=== PATIENT | male | born 1960 | race Caucasian/White ===

== ENCOUNTER → 2025-06-22 | Outpatient (CLI) | payer MEDICARE ==
[~2025-06-22] MED LIST: IOHEXOL-350 75 ML VIAL IV ONE
--- NOTE | 2025-06-22 16:21 | HMCIMG ---
EXAM: COMPUTED TOMOGRAPHY OF THE ABDOMEN AND PELVIS WITHOUT AND WITH INTRAVENOUS CONTRAST (ORAL CONTRAST ADMINISTERED) Technique: Helical computed tomography of the abdomen and pelvis without and with intravenous contrast with axial acquisition and multiplanar reformations when available. CTDIvol: 23.50 mGy; DLP: 1190.60 mGy???cm. Contrast: Standard dose of intravenous contrast administered. Positive oral contrast administered. Clinical Information: Elevated liver enzymes. Findings: Lung bases: No pleural effusion, atelectasis, or consolidation within the visualized lung bases. Liver: Normal in size, morphology, and attenuation with smooth margins; no focal hepatic lesion or calcification; no intrahepatic or extrahepatic biliary ductal dilatation; mayra hepatis unremarkable. Portal/hepatic veins and inferior vena cava: Normal caliber and patency by contrast opacification. Gallbladder and biliary tree: Gallbladder wall thickness is normal with smooth contour; uniform intraluminal fluid density without calcified gallstones; cystic duct region unremarkable; no pericholecystic inflammatory change. Pancreas: Normal size, contour, and enhancement; pancreatic duct not dilated; no peripancreatic fluid or fat stranding. Spleen: Normal size and attenuation without focal lesion. Adrenal glands: Normal morphology and attenuation bilaterally. Kidneys and ureters: Kidneys are normal in size, position, and enhancement without hydronephrosis or nephrolithiasis; a simple cyst in the right kidney mid-pole measures 3.0 cm (Bosniak I); a left parapelvic cyst measures 3.3 cm; no enhancing renal mass. Stomach, small bowel, and colon: Stomach is distended and unremarkable; gastroesophageal junction and pylorus are normal; jejunal and ileal loops show normal caliber and wall thickness; colon is fecal filled without abnormal mural thickening; no bowel obstruction; no free intraperitoneal air or fluid. Appendix: No computed tomography evidence of acute appendicitis. Peritoneum and mesentery: Mesenteric fat and omentum are unremarkable; no free fluid. Lymph nodes: No pathologically enlarged abdominal or pelvic lymph nodes; a calcified right suprarenal region lymph node measures 1.0 cm, likely sequela of prior granulomatous disease. Retroperitoneum and vasculature: Aorta and inferior vena cava are normal in course and caliber. Pelvic organs: Urinary bladder has normal wall thickness and contour; prostate is enlarged (prostatomegaly). Abdominal wall and paraspinal soft tissues: Unremarkable. Osseous structures: No acute osseous abnormality. IMPRESSION: 1. Normal liver and biliary tree without focal lesion or biliary dilatation to explain elevated liver enzymes. Correlate with laboratory subtype (hepatocellular versus cholestatic pattern) and clinical context. 2. Simple right renal cyst (3.0 cm, Bosniak I) and left parapelvic cyst (3.3 cm), benign. No hydronephrosis or nephrolithiasis. 3. Prostatomegaly; correlate with prostate-specific antigen and lower urinary tract symptoms. 4. Calcified right suprarenal lymph node (10 mm), likely post-granulomatous and benign. 5. No computed tomography evidence of acute abdominopelvic pathology. /[place]
== END | disposition home or self-care (01) ==
LOC: RAH 09:07
PROVIDERS: ATTEND Physician Assistant Medical
DX: N28.1 Cyst of kidney, acquired (principal); N40.0 Benign prostatic hyperplasia without lower urinary tract symptoms; I89.8 Other specified noninfective disorders of lymphatic vessels and lymph nodes; R74.8 Abnormal levels of other serum enzymes
CPT/HCPCS: 74178; Q9967